=== PATIENT | female | born 1970 | race Caucasian/White ===

== ENCOUNTER 2017-02-16 19:42 | Emergency (ER) | payer OTHER ==
[~2017-02-16] VITALS: Ht 170.2 cm; Wt 98.1 kg
[~2017-02-16 19:42] MED LIST: ABIL5TAB PO; FLUO20CA8 PO; FLUO60TA PO; MINI1CAP PO; OLAN15TA PO; OLAN7.5T PO; RISP4TAB35 PO; SERO1TAB PO; TRAZ50TA2 PO; ZIPR20CA13 PO; ZIPR40CA11 PO; no home meds
[2017-02-16] MEDS ORDERED: ACETAMINOPHEN 325 MG TAB PO ONE (21:00)
[2017-02-16] MEDS ORDERED: ADACEL/BOOSTRIX VACCINE (DIPHTH/PERTUSS/ACELL/TETANUS)0.5ML SYR (90715) IM ONE (21:00)
[2017-02-16 21:51] VITALS: BP 138/82
--- NOTE | 2017-02-17 00:37 | REP ---
Clinical: Trauma. Technique: AP, lateral, bilateral oblique and sunrise views left knee . Findings: The osseous structures and joint spaces are intact and normal. There is no evidence for acute fracture or dislocation. No joint effusion is appreciated. Surrounding soft tissues are unremarkable. No subcutaneous emphysema or radiodense foreign body. Impression: Normal age-related changes. No acute fracture or dislocation. Signed by Aleks Coelho MD 02/17/2017 12:27 A
--- NOTE | 2017-02-17 00:41 | REP ---
Clinical: Trauma. Technique: AP, lateral left tibia / fibula . Findings: The osseous structures and joint spaces are intact and normal. There is no evidence for acute fracture or dislocation. Surrounding soft tissues are unremarkable. No subcutaneous emphysema or radiodense foreign body. Impression: Age appropriate examination . No acute fracture or dislocation. Signed by Aleks Coelho MD 02/17/2017 12:32 A
== END 2017-02-16 21:53 | disposition home or self-care (01) ==
LOC: M ED 19:42
DX: S80.02XA Contusion of left knee, initial encounter (principal); S80.12XA Contusion of left lower leg, initial encounter; S80.812A Abrasion, left lower leg, initial encounter; S80.212A Abrasion, left knee, initial encounter; S50.312A Abrasion of left elbow, initial encounter; X50.1XXA Overexertion from prolonged static or awkward postures, initial encounter; Y92.099 Unspecified place in other non-institutional residence as the place of occurrence of the external cause; Y93.9 Activity, unspecified; Y99.9 Unspecified external cause status; F32.9 Major depressive disorder, single episode, unspecified; K57.30 Diverticulosis of large intestine without perforation or abscess without bleeding; H54.41 Blindness, right eye, normal vision left eye; F17.200 Nicotine dependence, unspecified, uncomplicated; Z79.899 Other long term (current) drug therapy; Z91.040 Latex allergy status

== ENCOUNTER 2018-06-14 15:02 | Emergency (ER) | payer OTHER ==
[2018-06-14 17:40] LABS: CONTROL LINE MONO INT CTR LINE PRESENT; MONO SCRN NEGATIVE (NEGATIVE)
== END 2018-06-14 17:52 | disposition home or self-care (01) ==
LOC: M ED 15:02
DX: J03.90 Acute tonsillitis, unspecified (principal); F41.9 Anxiety disorder, unspecified; D64.9 Anemia, unspecified; M19.90 Unspecified osteoarthritis, unspecified site; F33.9 Major depressive disorder, recurrent, unspecified; F20.9 Schizophrenia, unspecified; Z79.899 Other long term (current) drug therapy; Z91.040 Latex allergy status; F17.210 Nicotine dependence, cigarettes, uncomplicated
CPT/HCPCS: 86308

== ENCOUNTER 2019-01-31 14:51 | Emergency (ER) | payer OTHER ==
[~2019-01-31] VITALS: Ht 175.3 cm; Wt 86.4 kg
[~2019-01-31 14:51] MED LIST changes: +AMOX500C PO; +ATOR1TAB19; +FERR1TAB8; +MAGICMW MT; +PANT40TA3; +TRAZ-163; +VITA2000
[2019-01-31] MEDS ORDERED: RANI150T14 (15:41)
[2019-01-31] MEDS ORDERED: NS 1,000 ML IV ONE (16:15)
[2019-01-31 16:20] LABS: BASO % 0.5 % (0.0-1.0); EOS # 0.1 10^3/uL (0.0-0.50); EOS % 2.3 % (0.0-3.0); HEMOGLOBIN 15.1 g/dl (12.0-15.5); LYMPH # 2.1 10^3/uL (1.5-4.5); LYMPH % 33.2 % (24.0-44.0); MEAN CORPUSCULAR HGB CONC 34.3 g/dl (32.0-36.5); MEAN CORPUSCULAR VOLUME 87.3 fl (80.0-96.0); MONO # 0.6 10^3/uL (0.0-0.8); MONO % 8.9 % (0.0-5.0); NEUTROPHILS # 3.4 10^3/uL (1.8-7.7); NEUTROPHILS % 54.9 % (36.0-66.0); PLATELET COUNT, AUTOMATED 271 10^3/uL (150-450); RED BLOOD COUNT 5.04 10^6/uL (4.00-5.40); WHITE BLOOD COUNT 6.2 10^3/uL (4.0-10.0)
[2019-01-31 16:31] LABS: AMYLASE 46 U/L (25-115); BLOOD UREA NITROGEN 10 MG/DL (7-18); CALCIUM LEVEL 9.8 MG/DL (8.5-10.1); CARBON DIOXIDE LEVEL 23 MEQ/L (21-32); CHLORIDE LEVEL 108 MEQ/L (98-107); CREATININE FOR GFR 0.88 MG/DL (0.55-1.30); GLOMERULAR FILTRATION RATE > 60.0 (>58); GLUCOSE, FASTING 115 MG/DL (70-100); LIPASE 150 U/L (73-393); POTASSIUM SERUM 4.2 MEQ/L (3.5-5.1); SODIUM LEVEL 140 MEQ/L (136-145)
[2019-01-31 16:56] LABS: H PYLORI QUALITATIVE IgG DETECTED (NEGATIVE)
[2019-01-31] MEDS ORDERED: ISOVUE-370 76% 100ML VIAL (Q9967) As Ordered ONE (17:05)
--- NOTE | 2019-01-31 18:22 | REPVR ---
EXAM: CT Abdomen and Pelvis With Contrast EXAM DATE/TIME: 01/31/2019 4:50 PM CLINICAL HISTORY: 48 years old, female; Abdominal pain; Additional info: Abdominal pain llq, HX of diverticulitis TECHNIQUE: Imaging protocol: Axial computed tomography images of the abdomen and pelvis with intravenous contrast. Coronal and sagittal reformatted images were created and reviewed. Radiation optimization: All CT scans at this facility use at least one of these dose optimization techniques: automated exposure control; mA and/or kV adjustment per patient size (includes targeted exams where dose is matched to clinical indication); or iterative reconstruction. Contrast material: ISOVUE 370; Contrast volume: 100 ml; Contrast route: IV; COMPARISON: No relevant prior studies available. FINDINGS: Lungs: There is subsegmental atelectasis or scarring of the lingula. Mediastinum: Small hiatal hernia. Liver: Normal. No mass. Gallbladder and bile ducts: Normal. No calcified stones. No ductal dilation. Pancreas: Normal. No ductal dilation. Spleen: Normal. No splenomegaly. Adrenals: Normal. No mass. Kidneys and ureters: Normal. No hydronephrosis. Stomach and bowel: There is diverticulosis of the sigmoid colon without diverticulitis. Appendix: There is a normal appendix. Intraperitoneal space: Normal. No free air. No significant fluid collection. Vasculature: Normal. No abdominal aortic aneurysm. Lymph nodes: Normal. No enlarged lymph nodes. Bladder: Unremarkable as visualized. Reproductive: There is a 5.6 x 3.7 cm lobular lesion of the posterior uterine fundus, likely a fibroid. Bones/joints: No acute fracture. No dislocation. Soft tissues: Unremarkable. IMPRESSION: 1. Sigmoid diverticulosis without diverticulitis. 2. Suspected uterine fibroid. Pelvic ultrasound can be obtained for further evaluation if clinically indicated. Electronically signed by: Amina Gonzalez On 01/31/2019 18:22:08 PM
[2019-01-31] MEDS ORDERED: KETOROLAC 30 MG/ML VIAL (J1885) IV ONE (19:15)
[2019-01-31] MEDS ORDERED: ONDANSETRON 4MG/2ML VIAL (J2405) IV ONE (19:15)
[2019-01-31] MEDS ORDERED: CLAR500T PO (19:58)
[2019-01-31] MEDS ORDERED: METR-265 PO (19:58)
[2019-01-31] MEDS ORDERED: PANT40TA3 PO (19:58)
[2019-01-31] MEDS ORDERED: ONDA4TAB6 PO (20:02)
[2019-01-31 20:04] VITALS: BP 137/66
--- NOTE | 2019-02-02 13:30 | ED PDOC ---
Post-Departure Follow-Up ct abd/p faxed to dr miranda for fu Chuy Lopez MD Feb 02, 2019 13:30
== END 2019-01-31 20:13 | disposition home or self-care (01) ==
LOC: M ED 14:51
DX: D25.9 Leiomyoma of uterus, unspecified (principal); B96.81 Helicobacter pylori [H. pylori] as the cause of diseases classified elsewhere; D64.9 Anemia, unspecified; K21.9 Gastro-esophageal reflux disease without esophagitis; M19.90 Unspecified osteoarthritis, unspecified site; Z79.899 Other long term (current) drug therapy; Z91.040 Latex allergy status; F17.210 Nicotine dependence, cigarettes, uncomplicated
CPT/HCPCS: 36415; 74177; 80048; 82150; 82270; 83630; 83690; 85025; 86677; 87207; 96361; 96374; 96375; 99284; J1885; J2405; Q9967

== ENCOUNTER 2019-06-03 14:27 | Emergency (ER) | payer OTHER ==
[~2019-06-03] VITALS: Ht 172.7 cm; Wt 91.3 kg
[~2019-06-03 14:27] MED LIST changes: +CLAR500T PO; +METR-265 PO; +ONDA4TAB6 PO; +PANT40TA3 PO; +RANI150T14; -TRAZ-163; +TRAZ-163 PO
[2019-06-03] MEDS ORDERED: ACETAMINOPHEN 325 MG TAB PO ONE (14:45)
[2019-06-03 15:17] LABS: INFLUENZA A AMPLIFICATION NEGATIVE (NEGATIVE); INFLUENZA B AMPLIFICATION NEGATIVE (NEGATIVE)
[2019-06-03] MEDS ORDERED: PALI1TAB2 (16:43)
--- NOTE | 2019-06-03 17:07 | REP ---
Chest x-ray: Two views. History: Cough and shortness of breath. . Comparison study: No comparison study. . Findings: The lungs are well inflated and free of infiltrate. The pleural angles are sharp. The heart size is normal. Pulmonary vasculature is not increased. No significant bony abnormality is seen. Impression: Negative chest x-ray. Electronically Signed by Eric Parada MD 06/03/2019 04:59 P
[2019-06-03] MEDS ORDERED: PSEUDOEPHEDRINE 30 MG TAB PO STA (17:37)
[2019-06-03] MEDS ORDERED: ALBUTEROL SULFATE 2.5 MG/0.5 ML INH NEB SOLN NEB ONE (17:45)
[2019-06-03] MEDS ORDERED: BENZONATATE 100 MG CAP PO ONE (17:45)
[2019-06-03] MEDS ORDERED: IBUPROFEN 600 MG TAB PO ONE (17:45)
[2019-06-03] MEDS ORDERED: PROAAER10 INH (18:44)
[2019-06-03] MEDS ORDERED: PSEU120T19 PO (18:44)
[2019-06-03] MEDS ORDERED: TESS100C PO (18:44)
[2019-06-03] MEDS ORDERED: IBUP-1022 PO (18:44)
[2019-06-03] MEDS ORDERED: ALBUTEROL 90 MCG/ACT 8GM HFA INHALER INH ONE (18:45)
[2019-06-03 19:07] VITALS: BP 133/73
== END 2019-06-03 19:08 | disposition home or self-care (01) ==
LOC: M ED 14:27
DX: J06.9 Acute upper respiratory infection, unspecified (principal); B34.9 Viral infection, unspecified; R09.81 Nasal congestion; F17.210 Nicotine dependence, cigarettes, uncomplicated; Z91.040 Latex allergy status; Z79.4 Long term (current) use of insulin; Z79.899 Other long term (current) drug therapy

== ENCOUNTER 2024-08-01 22:11 | Emergency (ER) | payer MEDICAID, OTHER ==
[~2024-08-01] VITALS: Ht 172.7 cm; Wt 94.2 kg
[~2024-08-01 22:11] MED LIST changes: -CLAR500T PO; +CLAR500T97 PO; +IBUP-1022 PO; -OLAN15TA PO; +OLAN15TA69 PO; -OLAN7.5T PO; +OLAN7.5T8 PO; +ONDA-282 PO; -ONDA4TAB6 PO; +PALI1TAB2; +PANT40TA29; +PANT40TA29 PO; -PANT40TA3; -PANT40TA3 PO; +PROAAER10 INH; +PSEU120T19 PO; +TESS100C PO; -TRAZ-163 PO; +TRAZ-257 PO; -ZIPR40CA11 PO; +ZIPR40CA21 PO
[2024-08-01 22:37] LABS: BASO # 0.1 10^3/uL (0.0-0.2); BASO % 0.6 % (0.0-1.0); EOS # 0.3 10^3/uL (0.0-0.5); EOS % 3.1 % (0.0-3.0); HEMATOCRIT 40.2 % (36.0-47.0); HEMOGLOBIN 13.8 g/dl (12.0-15.5); LYMPH # 2.8 10^3/uL (1.5-5.0); LYMPH % 30.6 % (24.0-44.0); MEAN CORPUSCULAR HEMOGLOBIN 30.7 pg (27.0-33.0); MEAN CORPUSCULAR HGB CONC 34.3 g/dl (32.0-36.5); MEAN CORPUSCULAR VOLUME 89.5 fl (80.0-96.0); NEUTROPHILS # 4.9 10^3/uL (1.5-8.5); NEUTROPHILS % 54.4 % (36.0-66.0); PLATELET COUNT, AUTOMATED 285 10^3/uL (150-450); RED BLOOD COUNT 4.49 10^6/uL (4.00-5.40); WHITE BLOOD COUNT 9.1 10^3/uL (4.0-10.0)
[2024-08-01 22:48] LABS: INR 0.88; PROTHROMBIN TIME 12.3 SECONDS (12.5-14.5)
[2024-08-01 23:03] LABS: LIPASE 42 U/L (12-53)
[2024-08-01 23:05] LABS: ALBUMIN 3.5 G/DL (3.2-5.2); ALKALINE PHOSPHATASE 79 U/L (35-104); ALT/SGPT 18 U/L (7.0-40); AST/SGOT 15 U/L (<34); BILIRUBIN,DIRECT < 0.1 MG/DL (<0.4); BILIRUBIN,TOTAL 0.2 MG/DL (0.3-1.2); BLOOD UREA NITROGEN 13 MG/DL (9-23); CALCIUM LEVEL 8.8 MG/DL (8.5-10.1); CARBON DIOXIDE LEVEL 24 MMOL/L (20-31); CHLORIDE LEVEL 108 MMOL/L (98-107); CK-MB VALUE MASS 3.3 NG/ML (<3.6); CPK CREATINE PHOSPHOKINASE 93 U/L (34-145); CREATININE FOR GFR 0.89 MG/DL (0.55-1.30); GLOMERULAR FILTRATION RATE > 60.0 (>51); GLUCOSE, FASTING 132 MG/DL (60-100); MB/CK RELATIVE INDEX 3.54 (< OR =4); POTASSIUM SERUM 4.1 MMOL/L (3.5-5.1); SODIUM LEVEL 140 MMOL/L (136-145); TOTAL PROTEIN 6.8 G/DL (5.7-8.2)
[2024-08-01] MEDS ORDERED: HEPARIN SOD (PORCINE) 5000UNITS/ML 1ML VIAL/SYRINGE IV PRN (23:45)
[2024-08-02] MEDS ORDERED: HEPARIN SOD (PORCINE) 5000UNITS/ML 1ML VIAL/SYRINGE IV PRN (00:05)
[2024-08-02] MEDS ORDERED: ISOVUE-370 76% 100ML VIAL As Ordered ONE (00:11)
[2024-08-02 00:26] VITALS: BP 123/76
[2024-08-02] MEDS: NITROGLYCERIN 0.4MG SUBL TABLET SL STA (00:26)
[2024-08-02] MEDS: HEPARIN DRIP 25,000 UNITS in IV 1 EA IV SCH (00:44)
[2024-08-02] MEDS: HEPARIN SOD (PORCINE) 5000UNITS/ML 1ML VIAL/SYRINGE IV ONE (00:45)
[2024-08-02 01:15] VITALS: BP 102/63; TEMP 97.8; O2SAT 94
[2024-08-02 01:29] LABS: PARTIAL THROMBOPLASTIN TIME 27.8 SECONDS (24.8-34.2)
== END 2024-08-02 01:38 | disposition short-term general hospital (02) ==
LOC: EDBD 22:11 → M ED 22:11
DX: I21.4 Non-ST elevation (NSTEMI) myocardial infarction (principal); I45.10 Unspecified right bundle-branch block; I45.81 Long QT syndrome; K21.9 Gastro-esophageal reflux disease without esophagitis; K57.30 Diverticulosis of large intestine without perforation or abscess without bleeding; F17.200 Nicotine dependence, unspecified, uncomplicated; F41.9 Anxiety disorder, unspecified; F32.A Depression, unspecified; Z91.040 Latex allergy status; Z79.52 Long term (current) use of systemic steroids; Z79.02 Long term (current) use of antithrombotics/antiplatelets; Z79.899 Other long term (current) drug therapy
CPT/HCPCS: 71045; 71275; 80048; 80076; 82550; 82553; 83690; 83880; 84484; 85025; 85610; 85730; 87486; 87581; 87633; 87798; 93005; 93041; 94760; 96365; 99285; Q9967